=== PATIENT | female | born 1970 | race African-American/Black ===

== ENCOUNTER 2017-07-08 17:09 | Emergency (ER) | payer MEDICAID ==
[~2017-07-08] VITALS: Ht 165.1 cm; Wt 75.0 kg
[~2017-07-08 17:09] MED LIST: PHEN100C4 PO
[2017-07-08] MEDS ORDERED: ONDANSETRON HCL 4MG/2ML VIAL IV STA (20:15)
[2017-07-08] MEDS ORDERED: SODIUM CHLORIDE 0.9% 1,000 ML IV ONE (20:15)
[2017-07-08] MEDS ORDERED: KETOROLAC 30MG/ML VIAL IV STA (20:15)
[2017-07-08 20:48] LABS: CLARITY URINE CLEAR (CLEAR); COLOR URINE YELLOW (YELLOW); KETONES URINE 1+ (NEGATIVE); LEUKOCYTE ESTERASE URINE 1+ (NEGATIVE); NITRITE URINE NEGATIVE (NEGATIVE); OCCULT BLOOD URINE NEGATIVE (NEGATIVE); PH URINE 5.5 (4.5-8.0); PROTEIN URINE NEGATIVE (NEGATIVE); SPECIFIC GRAVITY URINE 1.027 (1.005-1.030)
[2017-07-08 21:31] LABS: HEMATOCRIT. 42.4 % (36.0-48.0); HEMOGLOBIN. 14.7 g/dL (12.0-16.0); MEAN CORPUSCULAR HEMOGLOBIN 33.4 pg (28.0-32.0); MEAN CORPUSCULAR VOLUME 96.3 fL (81.0-99.0); RED BLOOD CELL COUNT 4.41 mill/uL (4.2-5.4); RED CELL DISTRIBUTION WIDTH 13.8 % (11.6-14.6)
[2017-07-08 21:35] LABS: CHLORIDE 106 mEq/L (98-107); PROTHROMBIN TIME 10.9 sec (9.4-11.6)
[2017-07-08] MEDS ORDERED: MORPHINE SULFATE 4 MG/ML CPJ (NOT FOR IM USE) IV STA (21:42)
[2017-07-08 21:43] LABS: CARBON DIOXIDE 22 mEq/L (21-32)
[2017-07-08 23:03] VITALS: BP 109/67
== END 2017-07-08 23:13 | disposition home or self-care (01) ==
LOC: ER 17:17
DX: N39.0 Urinary tract infection, site not specified (principal); F17.210 Nicotine dependence, cigarettes, uncomplicated; Z88.0 Allergy status to penicillin; Z88.8 Allergy status to other drugs, medicaments and biological substances
CPT/HCPCS: 36415; 80053; 81001; 81025; 83690; 85025; 85610; 96361; 96374; 96375; 99285; C1893; J1885; J2270; J2405; J7030; Z7610

== ENCOUNTER 2017-07-26 11:57 | Emergency (ER) | payer MEDICAID ==
[~2017-07-26] VITALS: Ht 170.2 cm; Wt 75.0 kg
[2017-07-26 13:09] LABS: BASOPHILS % 0.4 % (0.0-2.0); EOSINOPHILS % 0.2 % (0.0-5.0); HEMATOCRIT. 42.8 % (36.0-48.0); HEMOGLOBIN. 14.4 g/dL (12.0-16.0); LYMPHOCYTES % 9.4 % (20.0-50.0); MEAN CORPUSCULAR HEMOGLOBIN 32.6 pg (28.0-32.0); MEAN PLATELET VOLUME 8.8 fl (7.4-10.4); MONOCYTES % 4.8 % (2.0-8.0); NEUTROPHILS % 85.2 % (40.0-76.0); PLATELET 271 x1000/uL (130-400); RED BLOOD CELL COUNT 4.42 mill/uL (4.2-5.4)
[2017-07-26 13:15] LABS: PROTHROMBIN TIME 10.7 sec (9.4-11.6)
[2017-07-26] MEDS ORDERED: ONDANSETRON 4MG ODT PO STA (13:18)
[2017-07-26] MEDS ORDERED: SODIUM CHLORIDE 0.9% 1,000 ML IV ONE (13:18)
[2017-07-26] MEDS ORDERED: MORPHINE SULFATE 4 MG/ML CPJ (NOT FOR IM USE) IV STA ×2 (13:18→14:32)
[2017-07-26 13:21] LABS: CHLORIDE 105 mEq/L (98-107)
[2017-07-26 13:50] LABS: HCG SCREEN NEGATIVE
[2017-07-26] MEDS ORDERED: PHENYTOIN SODIUM 1,000 MG in SODIUM CHLORIDE 0.9% 100 ML IV ONE (14:30)
[2017-07-26] MEDS ORDERED: ONDANSETRON HCL 4MG/2ML INJ IV STA (14:32)
[2017-07-26] MEDS ORDERED: ONDANSETRON HCL 4MG/2ML INJ IV ONE (16:15)
[2017-07-26] MEDS ORDERED: LEVOFLOXACIN 750MG PREMIX 150 ML IV ONE (16:30)
[2017-07-26] MEDS ORDERED: METOCLOPRAMIDE HCL 10MG/2ML VIAL IV ONE (16:30)
[2017-07-26] MEDS ORDERED: DIPHENHYDRAMINE 50MG/ML VIAL IV ONE (16:30)
[2017-07-26] MEDS ORDERED: ONDANSETRON HCL 4MG/2ML INJ IM ONE (16:45)
[2017-07-26] MEDS ORDERED: MORPHINE SULFATE 10 MG/ML CPJ IM ONE (16:45)
[2017-07-26] MEDS: ONDANSETRON HCL 4MG TABLET PO PRN (23:09)
[2017-07-26] MEDS ORDERED: CLONIDINE 0.1MG TABLET PO PRN (23:45)
[2017-07-26] MEDS ORDERED: ACETAMINOPHEN 325MG TABLET PO PRN (23:45)
[2017-07-26] MEDS ORDERED: ONDANSETRON HCL 4MG/2ML INJ IV PRN (23:45)
[2017-07-26] MEDS ORDERED: MORPHINE SULFATE 4 MG/ML CPJ (NOT FOR IM USE) IV PRN (23:45)
[2017-07-26] MEDS ORDERED: DIPHENHYDRAMINE 50MG/ML VIAL IV PRN (23:45)
[2017-07-26] MEDS ORDERED: DEXT 5%/0.45% NACL 1000ML 1,000 ML IV SCH (23:45)
[2017-07-27] MEDS: ONDANSETRON HCL 4MG TABLET PO PRN (04:23)
[2017-07-27 05:59] LABS: BASOPHILS % 0.6 % (0.0-2.0); EOSINOPHILS % 0.1 % (0.0-5.0); HEMATOCRIT. 40.5 % (36.0-48.0); HEMOGLOBIN. 13.7 g/dL (12.0-16.0); LYMPHOCYTES % 17.1 % (20.0-50.0); MEAN CORPUSCULAR HEMOGLOBIN 32.5 pg (28.0-32.0); MEAN CORPUSCULAR VOLUME 96.5 fL (81.0-99.0); MEAN PLATELET VOLUME 9.5 fl (7.4-10.4); MONOCYTES % 9.6 % (2.0-8.0); NEUTROPHILS % 72.6 % (40.0-76.0); PLATELET 259 x1000/uL (130-400); RED CELL DISTRIBUTION WIDTH 13.8 % (11.6-14.6)
[2017-07-27 06:10] LABS: CHLORIDE 104 mEq/L (98-107)
[2017-07-27 07:42] VITALS: BP 128/69
== END 2017-07-27 08:44 | disposition left against medical advice (07) ==
LOC: ER 12:27 → SUPCPDRO 23:44 → ER 07-27 08:44 → CANBEDREQ 07-27 16:46
DX: D25.9 Leiomyoma of uterus, unspecified (principal); G40.909 Epilepsy, unspecified, not intractable, without status epilepticus; R19.7 Diarrhea, unspecified; R11.2 Nausea with vomiting, unspecified; R10.30 Lower abdominal pain, unspecified; R78.89 Finding of other specified substances, not normally found in blood; Z88.0 Allergy status to penicillin
CPT/HCPCS: 36415; 71045; 74176; 76856; 80053; 80185; 83690; 84703; 85025; 85610; 85730; 87804; 93005; 96361; 96365; 96372; 96375; 96376; 99285; J1165; J1200; J1956; J2270; J2405; J2765; Q0162; Z7610; J7030; J7050

== ENCOUNTER 2019-10-05 12:06 | Emergency (ER) | payer MEDICAID ==
[~2019-10-05] VITALS: Ht 170.2 cm; Wt 66.0 kg
[2019-10-05] MEDS ORDERED: SODIUM CHLORIDE 0.9% 1,000 ML IV ONE (12:42)
[2019-10-05] MEDS ORDERED: ONDANSETRON HCL 4MG/2ML INJ IV STA (12:42)
[2019-10-05] MEDS ORDERED: KETOROLAC 30MG/ML VIAL IV STA (12:42)
[2019-10-05] MEDS ORDERED: MAGNESIUM/ALUMINUM HYDROXIDE/SIMETHICONE 30ML UDC PO STA (12:42)
[2019-10-05] MEDS ORDERED: LORAZEPAM 2MG/ML CPJ IV ONE (12:45)
[2019-10-05 14:04] LABS: BASOPHILS % 0.5 % (0.0-2.0); EOSINOPHILS % 0.1 % (0.0-5.0); HEMATOCRIT. 46.2 % (36.0-48.0); HEMOGLOBIN. 15.7 g/dL (12.0-16.0); LYMPHOCYTES % 12.2 % (20.0-50.0); MEAN PLATELET VOLUME 9.8 fl (7.4-10.4); MONOCYTES % 3.1 % (2.0-8.0); NEUTROPHILS % 84.1 % (40.0-76.0); PLATELET 276 x1000/uL (130-400); RED BLOOD CELL COUNT 4.76 mill/uL (4.2-5.4); RED CELL DISTRIBUTION WIDTH 14.3 % (11.6-14.6)
[2019-10-05 14:13] LABS: CHLORIDE 106 mEq/L (98-107)
[2019-10-05 14:16] LABS: ETHANOL BLOOD < 10 mg/dL
[2019-10-05] MEDS ORDERED: ONDANSETRON 4MG ODT PO ONE ×2 (14:30→15:30)
[2019-10-05 16:43] LABS: HCG SCREEN NEGATIVE
[2019-10-05 17:57] VITALS: BP 137/73
[2019-10-05] MEDS ORDERED: METOCLOPRAMIDE HCL 10MG TABLET PO ONE (18:00)
== END 2019-10-05 17:57 | disposition home or self-care (01) ==
LOC: ER 12:14
DX: R10.33 Periumbilical pain (principal); R11.2 Nausea with vomiting, unspecified; Z88.0 Allergy status to penicillin; Z88.8 Allergy status to other drugs, medicaments and biological substances
CPT/HCPCS: 36415; 74176; 80053; 80320; 83690; 84703; 85025; 96374; 96375; 99285; J1885; J2060; J2405; J7030; J8597; Q0162; G0480

== ENCOUNTER 2019-10-06 02:33 | Emergency (ER) | payer MEDICAID ==
[~2019-10-06] VITALS: Ht 162.6 cm; Wt 56.0 kg
[2019-10-06] MEDS ORDERED: ONDANSETRON HCL 4MG/2ML INJ IV ONE ×2 (03:30→05:00)
[2019-10-06 03:35] LABS: BASOPHILS % 0.5 % (0.0-2.0); EOSINOPHILS % 0.1 % (0.0-5.0); HEMATOCRIT. 41.6 % (36.0-48.0); HEMOGLOBIN. 14.6 g/dL (12.0-16.0); LYMPHOCYTES % 8.1 % (20.0-50.0); MEAN CORPUSCULAR HEMOGLOBIN 33.2 pg (28.0-32.0); MEAN CORPUSCULAR VOLUME 94.7 fL (81.0-99.0); MEAN PLATELET VOLUME 9.2 fl (7.4-10.4); MONOCYTES % 4.1 % (2.0-8.0); NEUTROPHILS % 87.2 % (40.0-76.0); PLATELET 275 x1000/uL (130-400); RED BLOOD CELL COUNT 4.39 mill/uL (4.2-5.4); RED CELL DISTRIBUTION WIDTH 13.9 % (11.6-14.6)
[2019-10-06 03:39] LABS: CHLORIDE 106 mEq/L (98-107); PROTHROMBIN TIME 10.6 sec (9.6-11.0)
[2019-10-06 03:45] LABS: HCG SCREEN NEGATIVE
[2019-10-06 03:59] LABS: CARBAMAZEPINE < 0.5 ug/mL (4-12); PHENOBARBITAL < 2.1 ug/mL (15.0-40.0); VALPROIC ACID < 3.0 ug/mL (50-100)
[2019-10-06] MEDS ORDERED: PHENYTOIN SODIUM EXTENDED 100MG CAPSULE PO SCH (04:15)
[2019-10-06] MEDS ORDERED: LOPERAMIDE 1 MG/7.5 ML UDC PO ONE (05:00)
[2019-10-06] MEDS ORDERED: SODIUM CHLORIDE 0.9% 1,000 ML IV ONE (05:00)
[2019-10-06] MEDS ORDERED: DIPHENHYDRAMINE 50MG/ML VIAL IM ONE (05:30)
[2019-10-06] MEDS ORDERED: LOPERAMIDE HCL 2MG CAPSULE PO SCH (06:30)
[2019-10-06 06:34] LABS: CLARITY URINE CLEAR (CLEAR); COLOR URINE YELLOW (YELLOW); KETONES URINE 2+ (NEGATIVE); LEUKOCYTE ESTERASE URINE TRACE (NEGATIVE); NITRITE URINE NEGATIVE (NEGATIVE); OCCULT BLOOD URINE 2+ (NEGATIVE); PH URINE 6.5 (4.5-8.0); PROTEIN URINE 2+ (NEGATIVE); SPECIFIC GRAVITY URINE 1.025 (1.005-1.030); UROBILINOGEN URINE 0.2 E.U./dL (0.2-1.0)
[2019-10-06 07:11] VITALS: BP 128/72
== END 2019-10-06 07:12 | disposition home or self-care (01) ==
LOC: ER 02:33
DX: G40.909 Epilepsy, unspecified, not intractable, without status epilepticus (principal); Z88.0 Allergy status to penicillin
CPT/HCPCS: 36415; 80053; 80156; 80165; 80184; 80185; 81003; 84703; 85025; 85610; 96361; 96372; 96374; 96376; 99285; J1200; J2405; J7030

== ENCOUNTER 2019-10-10 18:04 | Emergency (ER) | payer MEDICAID, OTHER ==
[~2019-10-10] VITALS: Ht 170.2 cm; Wt 65.0 kg
[2019-10-10] MEDS ORDERED: MORPHINE SULFATE 4 MG/ML CPJ (NOT FOR IM USE) IV STA (18:58)
[2019-10-10] MEDS ORDERED: SODIUM CHLORIDE 0.9% 1,000 ML IV ONE (18:58)
[2019-10-10] MEDS ORDERED: ONDANSETRON HCL 4MG/2ML INJ IV ONE (19:00)
[2019-10-10] MEDS ORDERED: HALOPERIDOL LACTATE 5MG/ML VIAL IM ONE (19:00)
[2019-10-10 20:49] LABS: BASOPHILS % 0.9 % (0.0-2.0); EOSINOPHILS % 0.5 % (0.0-5.0); HEMATOCRIT. 46.6 % (36.0-48.0); HEMOGLOBIN. 15.7 g/dL (12.0-16.0); LYMPHOCYTES % 19.2 % (20.0-50.0); MEAN CORPUSCULAR HEMOGLOBIN 33.1 pg (28.0-32.0); MEAN CORPUSCULAR VOLUME 98.2 fL (81.0-99.0); MEAN PLATELET VOLUME 9.6 fl (7.4-10.4); MONOCYTES % 6.6 % (2.0-8.0); NEUTROPHILS % 72.8 % (40.0-76.0); PLATELET 226 x1000/uL (130-400); RED BLOOD CELL COUNT 4.74 mill/uL (4.2-5.4); RED CELL DISTRIBUTION WIDTH 14.2 % (11.6-14.6)
[2019-10-10 20:54] LABS: CHLORIDE 103 mEq/L (98-107)
[2019-10-10 20:58] LABS: ETHANOL BLOOD < 10 mg/dL
[2019-10-10 23:12] VITALS: BP 129/78
== END 2019-10-10 23:19 | disposition home or self-care (01) ==
LOC: ER 18:04
DX: R11.2 Nausea with vomiting, unspecified (principal); R10.84 Generalized abdominal pain; F12.10 Cannabis abuse, uncomplicated; Z88.0 Allergy status to penicillin
CPT/HCPCS: 36415; 80053; 80320; 83690; 85025; 96361; 96372; 96374; 96375; 99284; J1630; J2270; J2405; J7030; G0480

== ENCOUNTER 2022-08-06 13:09 | Emergency (ER) | payer OTHER ==
[~2022-08-06] VITALS: Ht 170.2 cm; Wt 75.0 kg
[2022-08-06] MEDS ORDERED: TETRACAINE 0.5% OPHTH DROPS 4ML RIGHTEYE ONE (18:00)
[2022-08-06] MEDS ORDERED: FLUORESCEIN SODIUM 1MG/STRIP RIGHTEYE ONE (18:15)
[2022-08-06 19:04] VITALS: BP 148/74
== END 2022-08-06 19:05 | disposition home or self-care (01) ==
LOC: ER 13:27
DX: H57.89 Other specified disorders of eye and adnexa (principal); F12.10 Cannabis abuse, uncomplicated; Z88.0 Allergy status to penicillin
CPT/HCPCS: 99283

== ENCOUNTER 2024-05-20 12:05 | Emergency (ER) | payer OTHER ==
[~2024-05-20] VITALS: Ht 170.2 cm; Wt 86.0 kg
[~2024-05-20 12:05] MED LIST changes: +ASPI-1160 PO; +LEVO-65 MT; +LIP40 PO
[2024-05-20 12:10] VITALS: O2SAT 100
[2024-05-20 12:21] VITALS: BP 105/74; PULSE 87; RESP 18; TEMP 98; O2SAT 100
[2024-05-20 13:36] LABS: BASOPHILS % 0.8 % (0.0-2.0); EOSINOPHILS % 0.4 % (0.0-5.0); HEMATOCRIT. 41.5 % (36.0-48.0); HEMOGLOBIN. 13.6 g/dL (12.0-16.0); LYMPHOCYTES % 20.2 % (20.0-50.0); MEAN CORPUSCULAR HEMOGLOBIN 31.5 pg (28.0-32.0); MEAN CORPUSCULAR HGB CONC 32.7 g/dL (31.0-37.0); MEAN CORPUSCULAR VOLUME 96.5 fL (81.0-99.0); MEAN PLATELET VOLUME 8.5 fl (7.4-10.4); MONOCYTES % 5.6 % (2.0-8.0); PLATELET 382 x1000/uL (130-400); RED CELL DISTRIBUTION WIDTH 14.2 % (11.6-14.6); WHITE BLOOD COUNT 14.7 x1000/uL (4.5-11.0)
[2024-05-20 13:47] LABS: CHLORIDE 109 mEq/L (98-107); POTASSIUM 4.2 mEq/L (3.5-5.1); SODIUM 139 mEq/L (136-145)
[2024-05-20 13:48] LABS: CALCIUM 9.9 mg/dL (8.7-10.4); CARBON DIOXIDE 25 mEq/L (21-32)
[2024-05-20 13:53] LABS: CREATININE 0.7 mg/dL (0.6-1.0); GLUCOSE 89 mg/dL (70-105); UREA NITROGEN BLOOD 5 mg/dL (9-23)
[2024-05-20 13:55] LABS: ALANINE AMINOTRANSFERASE < 7 IU/L (10-49); ALBUMIN 4.7 g/dL (3.2-4.8); ASPARTATE AMINOTRANSFERASE 17 IU/L (<34); BILIRUBIN DIRECT 0.1 mg/dL (<=3.0); TROPONIN I HIGH SENSITIVITY 7 ng/L (3.0-34)
[2024-05-20 13:56] LABS: BILIRUBIN TOTAL 0.5 mg/dL (0.1-1.0); PROTEIN TOTAL 7.8 g/dL (6.0-8.3)
[2024-05-20] MEDS ORDERED: DICYCLOMINE 10 MG/5 ML ORAL SYR PO STA (14:06)
[2024-05-20] MEDS ORDERED: METH-653 MT (14:17)
[2024-05-20] MEDS ORDERED: FAMO-135 MT (14:17)
[2024-05-20] MEDS: DICYCLOMINE HCL 10MG CAPSULE PO NR (14:25)
[2024-05-20] MEDS: MAGNESIUM/ALUMINUM HYDROXIDE/SIMETHICONE 30ML UDC PO STA (14:25)
[2024-05-20] MEDS: ONDANSETRON 4MG ODT PO STA (14:27)
== END 2024-05-20 14:29 | disposition home or self-care (01) ==
LOC: ER 12:05
DX: K29.70 Gastritis, unspecified, without bleeding (principal); Z88.0 Allergy status to penicillin; Z79.899 Other long term (current) drug therapy; Z79.82 Long term (current) use of aspirin
CPT/HCPCS: 99284; 80076; 80048; 85025; 84484; 36415; 93005; Q0162